=== PATIENT | female | born 1945 | race Caucasian/White ===

== ENCOUNTER 2017-06-29 10:23 | Inpatient (IN) | payer MEDICARE ==
[~2017-06-29] VITALS: Ht 141 cm; Wt 44.9 kg
[2017-06-29 10:30] VITALS: BP 157/77
[2017-06-29] MEDS ORDERED: ONDANSETRON 4 MG/2 ML VIAL IVP ONE (10:35)
--- NOTE | 2017-06-29 10:41 | NUR ---
Patient ambulated to bed 6 after providing a urine specimen. RN evaluating patient at bedside.
--- NOTE | 2017-06-29 10:58 | NUR ---
XRAY AT BEDSIDE.
--- NOTE | 2017-06-29 10:59 | NUR ---
72F BIB FAMILY (niece) C/O REFERRAL TO DOCTOR FOR ABNORMAL LAB OF CALCIUM IN THE LIVER TODAY, GENERALIZED WEAKNESS, AND LOSS OF APPETITE FOR TWO WEEKS S/P RADIATION TX; AAOX3 TO PLACE, PERSON AND SITUATION, WITH UNSTEADY GAIT; PERRLA; ACCORDING TO NIECE, PT NORMALLY WALKS AROUND WITH WALKER; LUNGS DIMINSHED BL; HR EVEN AND REGULAR; DENIES N/V/D; SKIN IS PINK/WARM/DRY; PT DENIES ANY FEVER, CP, SOB, OR COUGH AT THIS TIME; VSS; PATIENT POSITIONED FOR COMFORT; HOB ELEVATED; BEDRAILS UP X2; BED DOWN. ER MD MADE AWARE OF PT STATUS.
--- NOTE | 2017-06-29 11:00 | NUR ---
Patient appears to be resting comfortably in bed. Vital Signs within normal limits. Respirations even and unlabored.
[2017-06-29 11:04] LABS: BASOPHILS # (AUTO) 0.1 K/uL (0.00-0.22); BASOPHILS % (AUTO) 1.4 % (0.0-2.0); EOSINOPHILS # (AUTO) 0.1 K/uL (0-0.4); EOSINOPHILS % (AUTO) 1.8 % (0.0-4.0); HEMATOCRIT 35.7 % (36-48); HEMOGLOBIN 11.5 g/dL (12.0-16.0); LYMPHOCYTES % (AUTO) 17.1 % (20.5-51.1); MEAN CORPUSCULAR HEMOGLOBIN 29 pg (27-31); MEAN CORPUSCULAR HGB CONC 32 g/dL (33-37); MEAN CORPUSCULAR VOLUME 90 fL (80-94); MONOCYTES # (AUTO) 0.3 K/uL (0.8-1.0); MONOCYTES % (AUTO) 5.5 % (1.7-9.3); NEUTROPHILS # (AUTO) 4.4 K/uL (1.8-7.7); NEUTROPHILS % (AUTO) 74.2 % (42.2-75.2); PLATELET COUNT (AUTO) 280 K/uL (140-450); RED BLOOD CELL COUNT(AUTO) 3.98 MIL/uL (4.20-5.40); RED CELL DISTRIBUTION WIDTH 18.2 % (11.6-13.7); WHITE BLOOD COUNT (AUTO) 5.9 K/uL (4.8-10.8)
[2017-06-29 11:06] LABS: APPEARANCE,URINE HAZY (CLEAR); BILIRUBIN,URINE NEGATIVE (NEGATIVE); BLOOD, URINE 2+ (NEGATIVE); COLOR,URINE YELLOW (YELLOW); LEUKOCYTE ESTERASE ,URINE TRACE (NEGATIVE); NITRITE, URINE NEGATIVE (NEGATIVE); PROTEIN,URINE 1+ (NEGATIVE); UGLUCOSE NEGATIVE (NEGATIVE); UROBILINOGEN,URINE 0.2 EU/dL (0.2 - 1)
[2017-06-29] MEDS: NACL 0.9% 1,000 ML IV SCH ×3 (11:11→14:08)
[2017-06-29 11:20] LABS: BACTERIA,URINE 1+ /HPF (None Seen); MUCUS,URINE 2+ /LPF (None Seen); SQUAMOUS EPITHELIAL CELL,UR 4-10 (MOD) /LPF (0-3 (FEW))
[2017-06-29 11:24] LABS: ALANINE AMINOTRANSFERASE 25 U/L (14-59); ALBUMIN 3.9 g/dL (3.4-5.0); ALKALINE PHOSPHATASE 118 U/L (46-116); AMYLASE 31 U/L (25-115); ANION GAP 8.4 (8-16); ASPARTATE AMINOTRANSFERASE 23 U/L (15-37); CARBON DIOXIDE 30.3 mmol/L (21-32); CHLORIDE 94 mmol/L (98-107); GLUCOSE 189 mg/dL (74-106); LIPASE 113 U/L (73-393); POTASSIUM 3.7 mmol/L (3.5-5.1); SODIUM SERUM 129 mmol/L (136-145); TOTAL BILIRUBIN 0.5 mg/dL (0.0-1.0); TOTAL PROTEIN, SERUM 8.5 g/dL (6.4-8.2); UREA NITROGEN, BLOOD 29 mg/dL (7-18)
[2017-06-29 11:26] LABS: CALCIUM 14.7 mg/dL (8.5-10.1)
[2017-06-29] MEDS ORDERED: FUROSEMIDE 40 MG/4 ML VIAL IVP ONE (11:35)
[2017-06-29] MEDS ORDERED: NACL 0.9% 2,500 ML IV ONE (11:35)
--- NOTE | 2017-06-29 12:59 | NUR ---
VERIFIED TOTAL FLUIDS ORDERED; ADMINISTERING 2000 ML PER MD CURIEL VERBAL ORDER; WILL CONTINUE TO MONITOR
[2017-06-29] MEDS ORDERED: NACL 0.9% 1,000 ML IV SCH (13:11)
[2017-06-29] MEDS ORDERED: ACETAMINOPHEN 325 MG TAB PO PRN (13:15)
[2017-06-29] MEDS ORDERED: ONDANSETRON 4 MG/2 ML VIAL IVP PRN ×2 (13:15→13:30)
[2017-06-29] MEDS ORDERED: MORPHINE SULFATE 2 MG/ML SYR IVP PRN ×2 (13:15→13:30)
[2017-06-29] MEDS ORDERED: MORPHINE SULFATE 4 MG/ML SYR IVP PRN ×2 (13:15→13:30)
--- NOTE | 2017-06-29 13:22 | NUR ---
Patient will be admitted to care of [facility]. Admited to Tele 124A. Will go to room 124A. Belongings list completed. Report to [place]. VSS. CONNER.
--- NOTE | 2017-06-29 13:35 | NUR ---
RECEIVED PT ON UNIT VIA [employer], PT IS A/OX4, AMBULATES WITH ASSIST, PT HAS SURGICAL SCAR ON HER BACK, LEFT SIDE FROM A NEPHRECTOMY DONE 2017, IV IS ON THE LEFT AC, PATENT, INTACT, FLUSHING WELL, NO S/S OF RESPIRATORY DISTRESS OR DISCOMFORT NOTED, SAFETY/FALL PRECAUTIONS ARE IN PLACE, ORIENTED PT TO ROOM, DISCUSSED PLAN OF CARE WITH PT, PT VERBALIZED UNDERSTANDING, CALL LIGHT IS WITHIN REACH, WILL CONTINUE TO MONITOR.
--- NOTE | 2017-06-29 15:30 | NUR ---
LEFT AC IV IS NOT FLUSHING PROPERLY, WILL DISCONTINUE AT THIS TIME AND RESTART A NEW IV.
--- NOTE | 2017-06-29 15:35 | NUR ---
NEW IV ON THE RIGHT WRIST, PATENT, INTACT, FLUSHING WELL.
[2017-06-29] MEDS ORDERED: PAMIDRONATE 60 MG in NACL 0.9% 1,000 ML IV SCH (16:00)
[2017-06-29] MEDS: BLOOD GLUCOSE MONITORING 1 DEV DEV FS SCH ×2 (16:52→20:31)
--- NOTE | 2017-06-29 17:25 | NUR ---
PT IS RESTING IN BED, WATCHING TV, NO S/S OF RESPIRATORY DISTRESS OR DISCOMFORT NOTED, CALL LIGHT WITHIN REACH.
[2017-06-29] MEDS: INSULIN LISPRO SLIDING SCALE 100 UNITS/ML VIAL SUBQ PRN (17:54)
[2017-06-29] MEDS ORDERED: METF500T PO (18:57)
--- NOTE | 2017-06-29 19:13 | NUR ---
RECEIVED FROM AM RN IN BED AWAKE AND WATCHING TV. ABLE TO VERBALIZE NEEDS WELL. NO SOB. REQUESTING FOR TYLENOL AT THIS TIME RT C/O GENERALIZED PAIN. WILL MEDICATE REQUESTED. CARE PLANS FOR THE NIGHT DISCUSSED WITH HER AND CALL LIGHT WITH IN REACH. ENCOURAGED TO CALL FOR ANY HELP SHE MAY NEED. DX. 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 IVF SITE TO RIGHT WRIST #22 INTACT AND NO INFILTRATION NOTED.
--- NOTE | 2017-06-29 19:13 | NUR ---
ENDORSED PT TO DELPHI PROGRAMMER NURSE FOR CONTINUITY OF CARE, PT STABLE AT THIS TIME.
[2017-06-29] MEDS: ACETAMINOPHEN 325 MG TAB PO PRN ×2 (19:20→23:27)
[2017-06-29 20:03] VITALS: BP 140/63
--- NOTE | 2017-06-29 23:31 | NUR ---
PT. STILL AWAKE WATCHING TV. MEDICATED WITH TYLENOL TAB. REQUESTED. PT. TURNED OFF TV AFTER AND STATED SHE IS NOW GOING TO SLEEP. NO FURTHER COMPLAINTS DONE.
[2017-06-30 00:46] VITALS: BP 130/62
--- NOTE | 2017-06-30 01:22 | NUR ---
SLEEPING. NO RESTLESSNESS. CALL LIGHT WITH IN REACH.
[2017-06-30] MEDS: NACL 0.9% 1,000 ML IV SCH ×3 (01:30→20:09)
--- NOTE | 2017-06-30 03:21 | NUR ---
AWAKE AT THIS TIME. RAIL CAR DRIVER IN HERE TO GET SPECIMEN FROM HER. NO COMPLAINTS DONE. TELEMETRY MONITORING. IVF SITE INTACT AND NO INFILTRATION.
[2017-06-30 05:00] VITALS: BP 138/72
[2017-06-30] MEDS: BLOOD GLUCOSE MONITORING 1 DEV DEV FS SCH ×4 (05:39→20:09)
[2017-06-30] MEDS: ACETAMINOPHEN 325 MG TAB PO PRN ×2 (05:56→15:01)
--- NOTE | 2017-06-30 07:08 | NUR ---
ENDORSED TO THE NEXT RN FOR CONTINUITY OF CARE. AWAKE AND ALERT. MEDICATED WITH PAIN RELIEVER TYLENOL X 3 THIS SHIFT RT C/O GENERALIZED PAIN. TELEMETRY MONITORING. NO SOB. IVF SITE INTACT AND NO INFILTRATION.
--- NOTE | 2017-06-30 07:15 | NUR ---
RECEIVED REPORT FROM MANAGER POST NURSE, PT IS A/OX4, AMBULATES WITH ASSIST, PT HAS A LEFT SIDE LOW BACK OLD SURGICAL SCAR FROM LT SIDE NEPHRECTOMY, IV IS ON THE RIGHT WRIST,PATENT, INTACT, FLUSHING WELL, NO S/S OF RESPIRATORY DISTRESS OR DISCOMFORT NOTED, SAFETY/FALL PRECAUTIONS ARE IN PLACE, DISCUSSED PLAN OF CARE WITH PT, PT VERBALIZED UNDERSTANDING, CALL LIGHT IS WITHIN REACH, WILL CONTINUE TO MONITOR.
[2017-06-30 08:00] VITALS: BP 135/68
--- NOTE | 2017-06-30 08:10 | NUR ---
PATIENT HAS BEEN SCREENED AND CATEGORIZED HIGH NUTRITION RISK. PATIENT WILL BE SEEN WITHIN 1-2 DAYS OF ADMISSION. 06/30/17- KONG SANTOS RD
[2017-06-30] MEDS: MEGESTROL 40 MG TAB PO SCH (08:50)
--- NOTE | 2017-06-30 08:50 | NUR ---
DUE MEDICATIONS GIVEN, PT TOLERATED, CALL LIGHT IS WITHIN REACH.
[2017-06-30] MEDS: ENOXAPARIN 30 MG/0.3 ML SYR SUBQ SCH (08:54)
[2017-06-30] MEDS ORDERED: ENOXAPARIN 30 MG/0.3 ML SYR SUBQ SCH (09:00)
[2017-06-30] MEDS ORDERED: CALCITONIN INJ 200 IU/ML VIAL SUBQ SCH (09:00)
[2017-06-30 09:38] LABS: HEMATOCRIT 29.7 % (36-48); HEMOGLOBIN 9.8 g/dL (12.0-16.0); MEAN CORPUSCULAR HEMOGLOBIN 29 pg (27-31); MEAN CORPUSCULAR HGB CONC 33 g/dL (33-37); MEAN CORPUSCULAR VOLUME 88 fL (80-94); PLATELET COUNT (AUTO) 247 K/uL (140-450); RED BLOOD CELL COUNT(AUTO) 3.38 MIL/uL (4.20-5.40); RED CELL DISTRIBUTION WIDTH 17.8 % (11.6-13.7); WHITE BLOOD COUNT (AUTO) 5.5 K/uL (4.8-10.8)
[2017-06-30 10:05] LABS: ANION GAP 8.2 (8-16); CALCIUM 11.4 mg/dL (8.5-10.1); CARBON DIOXIDE 29.2 mmol/L (21-32); CHLORIDE 101 mmol/L (98-107); CREATININE 0.9 mg/dL (0.6-1.3); GLUCOSE 139 mg/dL (74-106); POTASSIUM 4.4 mmol/L (3.5-5.1); SODIUM SERUM 134 mmol/L (136-145); UREA NITROGEN, BLOOD 19 mg/dL (7-18)
[2017-06-30 10:07] LABS: BAND % (MANUAL) 4 % (0-8); LYMPHOCYTES % (MANUAL) 32 % (20-46); NEUTROPHILS % (MANUAL) 53 (43-65)
[2017-06-30 10:08] LABS: EOSINOPHILS % (MANUAL) 6 % (0-4); MONOCYTES % (MANUAL) 5 % (5-12)
--- NOTE | 2017-06-30 10:10 | NUR ---
ASSISTED PATIENT WITH BEDPAN, ALL NEEDS ARE MET, CALL LIGHT WITHIN REACH.
--- NOTE | 2017-06-30 11:02 | NUR ---
FAXED INITIAL REVIEW TO [facility] [place] [phone] PHONE MARNIE [phone]
[2017-06-30 12:00] VITALS: BP 148/70
--- NOTE | 2017-06-30 12:15 | NUR ---
PT IS SITTING IN BED EATING LUNCH AT THIS TIME, CALL LIGHT WITHIN REACH.
--- NOTE | 2017-06-30 14:34 | NUR ---
Comments06/30/17 RD INITIAL ASSESSMENT COMPLETED PLEASE REFER TO NUTRITION ASSESSMENT UNDER CARE ACTIVITY FOR ESTIMATED NUTRITIONAL NEEDS. 1. CONTINUE 60 G CONSISTENT CARBOHYDRATE DIET 2. ADD DIET HEALTH SHAKE TID 3. RD TO FOLLOW-UP 3-5 DAYS, MODERATE RISK KONG SANTOS, MAUREEN
--- NOTE | 2017-06-30 14:40 | NUR ---
ASSISTED PT WITH BEDPAN, ALL NEEDS MET, CALL LIGHT WITHIN REACH.
--- NOTE | 2017-06-30 15:10 | NUR ---
DR. SOLORZANO IN PATIENT'S ROOM SPEAKING WITH PATIENT.
[2017-06-30 16:00] VITALS: BP 144/74
--- NOTE | 2017-06-30 17:20 | NUR ---
PT IS RESTING IN BED WATCHING TV, NO S/S OF RESPIRATORY DISTRESS OR DISCOMFORT NOTED, CALL LIGHT WITHIN REACH.
--- NOTE | 2017-06-30 19:05 | NUR ---
ENDORSED PT TO SOW FARM MANAGER NURSE FOR CONTINUITY OF CARE, PT STABLE AT THIS TIME.
--- NOTE | 2017-06-30 19:10 | NUR ---
RECEIVED REPORT FROM DAY RN AT BEDSIDE FOR CONTINUITY OF CARE. PATIENT IS ALERT AND ORIENTED X4, DISCUSSED PLAN OF CARE WITH PATIENT, VERBALIZED UNDERSTANDING. SHIFT ASSESSMENT COMPLETED, VITAL SIGNS TAKEN. NO RESPIRATORY DISTRESS NOTED ON ROOM AIR, LUNGS CLEAR TO AUSCULTATION. PATIENT DENIES PAIN AT THIS TIME. IV TO RT WRIST PATENT AND INFUSING FLUIDS WELL. SAFETY/ FALL PRECAUTIONS ENFORCED. CALL LIGHT WITHIN REACH AND PATIENT ENCOURAGED TO USE FOR ASSISTANCE, WILL CONTINUE TO MONITOR.
[2017-06-30 20:00] VITALS: BP 152/65
--- NOTE | 2017-06-30 20:09 | NUR ---
REPLACED IVF, BLOOD SUGAR TAKEN 141, NO COVERAGE NEEDED. ALL NEEDS MET AT THIS TIME, PATIENT RESTING IN BED WATCHING TV WITH NO S/S OF DISTRESS OR DISCOMFORT NOTED. CALL LIGHT WITHIN REACH.
--- NOTE | 2017-06-30 22:00 | NUR ---
PATIENT SLEEPING AT THIS TIME, NO DISTRESS OR DISCOMFORT NOTED. CALL LIGHT WITHIN REACH AND SAFETY MEASURES ENFORCED, WILL CONTINUE TO MONITOR.
[2017-07-01] VITALS: BP 148/73
[2017-07-01] MEDS: ACETAMINOPHEN 325 MG TAB PO PRN ×3 (00:03→17:57)
--- NOTE | 2017-07-01 00:03 | NUR ---
VITAL SIGNS STABLE, PATIENT C/O HEADACHE REQUESTED TYLENOL, ADMINISTERED PER MD ORDER. CALL LIGHT WITHIN REACH, WILL CONTINUE TO MONITOR.
--- NOTE | 2017-07-01 01:55 | NUR ---
PATIENT ASSISTED TO BEDPAN, VOIDED. MADE COMFORTABLE AND IS NOW RESTING IN BED. CALL LIGHT WITHIN REACH.
[2017-07-01 04:00] VITALS: BP 145/58
--- NOTE | 2017-07-01 04:02 | NUR ---
VITAL SIGNS TAKEN, PATIENT NOW SLEEPING AT THIS TIME, NO DISTRESS OR DISCOMFORT NOTED. WILL CONTINUE TO MONITOR.
[2017-07-01] MEDS: NACL 0.9% 1,000 ML IV SCH ×2 (04:37→15:30)
[2017-07-01 05:37] LABS: BASOPHILS # (AUTO) 0.1 K/uL (0.00-0.22); BASOPHILS % (AUTO) 1.7 % (0.0-2.0); EOSINOPHILS % (AUTO) 0.8 % (0.0-4.0); HEMOGLOBIN 9.5 g/dL (12.0-16.0); LYMPHOCYTES # (AUTO) 1.1 K/uL (2.5-16.5); MEAN CORPUSCULAR HEMOGLOBIN 29 pg (27-31); MEAN CORPUSCULAR HGB CONC 33 g/dL (33-37); MEAN CORPUSCULAR VOLUME 90 fL (80-94); MONOCYTES # (AUTO) 0.2 K/uL (0.8-1.0); MONOCYTES % (AUTO) 4.5 % (1.7-9.3); NEUTROPHILS # (AUTO) 4.1 K/uL (1.8-7.7); PLATELET COUNT (AUTO) 234 K/uL (140-450); RED BLOOD CELL COUNT(AUTO) 3.25 MIL/uL (4.20-5.40); RED CELL DISTRIBUTION WIDTH 17.8 % (11.6-13.7); WHITE BLOOD COUNT (AUTO) 5.5 K/uL (4.8-10.8)
[2017-07-01] MEDS: BLOOD GLUCOSE MONITORING 1 DEV DEV FS SCH ×3 (06:04→17:22)
--- NOTE | 2017-07-01 06:04 | NUR ---
BLOOD SUGAR TAKEN, 89, PROVIDED PATIENT WITH JUICE. NO DISTRESS OR DISCOMFORT NOTED. WILL CONTINUE TO MONITOR.
[2017-07-01 06:37] LABS: ALANINE AMINOTRANSFERASE 17 U/L (14-59); ALBUMIN 2.8 g/dL (3.4-5.0); ALKALINE PHOSPHATASE 82 U/L (46-116); ASPARTATE AMINOTRANSFERASE 13 U/L (15-37); CALCIUM 11.2 mg/dL (8.5-10.1); CARBON DIOXIDE 25.7 mmol/L (21-32); CHLORIDE 104 mmol/L (98-107); CREATININE 0.7 mg/dL (0.6-1.3); GLUCOSE 91 mg/dL (74-106); POTASSIUM 3.7 mmol/L (3.5-5.1); SODIUM SERUM 135 mmol/L (136-145); TOTAL BILIRUBIN 0.3 mg/dL (0.0-1.0); TOTAL PROTEIN, SERUM 6.4 g/dL (6.4-8.2); UREA NITROGEN, BLOOD 15 mg/dL (7-18)
--- NOTE | 2017-07-01 07:18 | NUR ---
ENDORSED PATIENT TO DAY RN FOR CONTINUITY OF CARE, PATIENT IS IN STABLE CONDITION.
--- NOTE | 2017-07-01 08:00 | NUR ---
RECEIVED REPORT FROM LLOYD ALVARADO FOR CONTINUITY OF CARE. PATIENT AWAKE A/OX4 NO S/S OF RESP DISTRESS NOTED NO COMPLAIN OF PAIN. ABLE TO MAKE NEEDS KNOWN. GENERALIZE WEAKNESS NOTED SAFETY HAS BEEN ENFORCED. IV SITE RIGHT WRIST GAUGE 22 INTACT AND PATENT. IVF INFUSING WELL. PLAN OF CARE DISCUSSED WITH THE PATIENT VITALS STABLE WILL CONTINUE TO MONITOR.
[2017-07-01] MEDS: MEGESTROL 40 MG TAB PO SCH (08:50)
[2017-07-01] MEDS: ENOXAPARIN 30 MG/0.3 ML SYR SUBQ SCH (08:51)
[2017-07-01 08:55] VITALS: BP 164/71
--- NOTE | 2017-07-01 09:00 | NUR ---
DUE MEDS GIVEN TOLERATED WELL . ASSIST PATIENT WITH MORNING CARE. SERVED BREAKFAST GOOD APPETITE.
--- NOTE | 2017-07-01 10:02 | NUR ---
FAXED CONCURRENT REVIEW TO [facility] [place] [phone] PHONE MARNIE [phone]
[2017-07-01 12:00] VITALS: BP 146/69
--- NOTE | 2017-07-01 12:00 | NUR ---
CHECKED BS 126 NO COVERAGE NEEDED, DENIES ANY PAIN ,VITALS STABLE AT THIS TIME.
[2017-07-01] MEDS ORDERED: LEVO500T22 PO (13:28)
--- NOTE | 2017-07-01 14:00 | NUR ---
DR SOLORZANO VISITED PATIENT NOTIFIED [facility] OF THE URINE NEW ORDER OK TO DISCHARGE PATIENT WITH [facility] PO. PATIENT RESTING WELL STABLE CONDITION AT THIS TIME.
--- NOTE | 2017-07-01 14:17 | NUR ---
RECEIVED ORDER FOR PATIENT TO GO TO SNF FOR PT. I SPOKE WITH THE PATIENT AND THE NIECE, SALVADOR, AND THEY WOULD PREFER [facility] IF POS. [employer]OM[employer] SPOKE WITH CIERA AT [facility], AND NO FEMALE BEDS AVAILABLE. I CALLED MARNIE AT [facility], AND SHE SAID TO TRY [facility]. THE AUTH FOR THE SNF AND FOR TRANSF=PORT BY [facility] IS [id number]. MESSAGE LEFT FOR SANDRA AT [facility]. AWAITING CALL BACK.
--- NOTE | 2017-07-01 14:38 | NUR ---
SPOKE WITH PATIENT AND PATIENT'S NIECE, SALVADOR. THEY ARE IN AGREEMENT FOR PATIENT TO GO TO [facility].
--- NOTE | 2017-07-01 14:57 | NUR ---
FROM MARNIE AT [facility], AUTH FOR SNF AND TRANSPORT IS [id number]. TRANSPORT , USE [facility] [phone].
--- NOTE | 2017-07-01 15:04 | NUR ---
SS NOTE: PER SANDRA FROM [facility] ([phone]), PT CAN GO TO ROOM 203 ANYTIME BEFORE [address]ER THE CARE OF DR. BRICEÑO. FLOTATION TANK OPERATOR PAOLA SALEH
[2017-07-01 16:23] VITALS: BP 140/80
--- NOTE | 2017-07-01 16:30 | NUR ---
CHECKED BS 165 SLIDING SCALE COVERAGE 2 UNITS HOMOLOG GIVEN , ASSIST PATIENT TO BSC TOLERATED WELL
[2017-07-01] MEDS: INSULIN LISPRO SLIDING SCALE 100 UNITS/ML VIAL SUBQ PRN (17:22)
--- NOTE | 2017-07-01 17:28 | NUR ---
REPORT GIVEN TO MARK TAYLOR , PATIENT'S NIECE SALVADOR AWARE OF PATIENT DISCHARGE WAITING FOR THE TRANSPORT.
--- NOTE | 2017-07-01 18:35 | NUR ---
D/C PATIENT TO [facility] VIA [facility]UL[facility], FAMILY MEMBER AT THE BED SIDE ,STABLE CONDITION UPON DISCHARGE
[2017-07-02] MEDS ORDERED: LEVOFLOXACIN 500 MG TAB PO SCH (09:00)
== END 2017-07-01 18:37 | DRG 640 ==
LOC: MED 10:23 → MTU 13:11 → MED 13:22
PROVIDERS: ADMIT Hospitalist; ATTEND Hospitalist
DX: E83.52 Hypercalcemia (principal); G93.41 Metabolic encephalopathy; C78.7 Secondary malignant neoplasm of liver and intrahepatic bile duct; C79.51 Secondary malignant neoplasm of bone; C64.9 Malignant neoplasm of unspecified kidney, except renal pelvis; E87.1 Hypo-osmolality and hyponatremia; E11.9 Type 2 diabetes mellitus without complications; I10 Essential (primary) hypertension; Z88.1 Allergy status to other antibiotic agents; Z90.5 Acquired absence of kidney
CPT/HCPCS: 36415; 71010; 80048; 80053; 81001; 82150; 82553; 82948; 83690; 83880; 84484; 85025; 85610; 85730; 87081; 87086; 87186; 93005; 96361; 96372; 96374; 96375; 97110; 99285; J0630; J1650; J1815; J1940; J2405; J2430; J7030; Q0092